=== PATIENT | female | born 1990 | race Caucasian/White ===

== ENCOUNTER 2017-05-12 22:42 | Emergency (ER) | payer MEDICARE, MEDICAID ==
[2017-05-12 22:51] VITALS: BP 112/76
[2017-05-12] MEDS ORDERED: Baclofen 10 MG Tab PO ONE (23:46)
--- NOTE | 2017-05-13 00:25 | EDM.PDOC ---
ED HPI GENERAL MEDICAL PROBLEM - General Chief Complaint: Neurological Problem Stated Complaint: NEEDS MEDS Time Seen by Provider: 05/12/17 23:36 Source of Information: Reports: Patient, Family History Limitations: Reports: No Limitations - History of Present Illness INITIAL COMMENTS - FREE TEXT/NARRATIVE: The patient presents for a medication refill. She has a history of MS and she is now wheel chair bound and she is on baclofen 20mg 4 times per day. She ran out yesterday. She has more spactisity in her arms and legs today. Onset: Gradual Duration: Day(s): Location: Reports: Other (arms and leg) Severity: Mild Improves with: Reports: None Worsens with: Reports: None Associated Symptoms: Reports: No Other Symptoms Leg Pain Score (Numeric/FACES): 6 - Related Data Allergies Allergy/AdvReac Type Severity Reaction Status Date / Time No Known Allergies Allergy Verified 10/06/16 00:55 Home Meds: Home Meds Baclofen [Lioresal] 20 mg PO QID #30 tablet 05/03/14 [Rx] Cyanocobalamin (Vitamin B-12) [Vitamin B-12] 100 mcg PO DAILY 06/14/15 [History] Gabapentin [Neurontin] 400 mg PO TID 06/14/15 [History] Hydrocodone/Acetaminophen [Hydrocodon-Acetaminophen 5-325] 1 each PO QID [History] Sertraline [Zoloft] 50 mg PO BID 06/14/15 [History] Amitriptyline [Elavil] 25 mg PO BEDTIME 08/11/15 [History] Baclofen 20 mg PO QID #120 tablet 05/13/17 [Rx] Past Medical History Other Genitourinary History: Patient has a superpubic catheter. 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 - Infectious Disease History Infectious Disease History: Reports: Other (See Below) Other Infectious Disease History: Has hx of MRSA, has been cleared - Past Surgical History HEENT Surgical History: Reports: Myringotomy w Tube(s), Tonsillectomy Female Surgical History: Reports: Section Social & Family History - Tobacco Use Smoking Status *Q: Current Every Day Smoker Years of Tobacco use: 13 Packs/Tins Daily: 0.5 Used Tobacco, but Quit: Yes Month Tobacco Last Used: 03/2014 Second Hand Smoke Exposure: No - Caffeine Use Caffeine Use: Reports: Coffee - Alcohol Use Days Per Week of Alcohol Use: 0 Number of Drinks Per Day: 1 Total Drinks Per Week: 0 - Recreational Drug Use Recreational Drug Use: No ED ROS GENERAL - Review of Systems Review Of Systems: See Below Constitutional: Reports: No Symptoms HEENT: Reports: No Symptoms Respiratory: Reports: No Symptoms Cardiovascular: Reports: No Symptoms Endocrine: Reports: No Symptoms GI/Abdominal: Reports: No Symptoms : Reports: No Symptoms Musculoskeletal: Reports: Muscle Stiffness Skin: Reports: No Symptoms ED EXAM, NEURO - Physical Exam Exam: See Below Exam Limited By: No Limitations General Appearance: Alert, No Apparent Distress Ears: Normal External Exam Nose: Normal Inspection Head Exam: Atraumatic, Normocephalic Neck: Normal Inspection Respiratory/Chest: No Respiratory Distress, Lungs Clear, Normal Breath Sounds Cardiovascular: Regular Rate, Rhythm, No Edema, No Murmur GI/Abdominal: Soft, Non-Tender, No Organomegaly, No Mass Neurological: Alert Course - Vital Signs Last Recorded V/S: Last Vital Signs Temp 97.1 F 05/12/17 22:51 Pulse 94 05/12/17 22:51 Resp 20 05/12/17 22:51 BP 112/76 05/12/17 22:51 Pulse Ox 100 05/12/17 22:51 - Orders/Labs/Meds Meds: Medications Discontinued Medications Generic Name Dose Route Start Last Admin Trade Name Alem PRJanette Reason Stop Dose Admin Baclofen 40 mg 05/12/17 23:46 05/13/17 00:15 Lioresal PO 05/12/17 23:47 40 mg ONETIME ONE Administration - Re-Assessments/Exams Free Text/Narrative Re-Assessment/Exam: 05/13/17 03:05 I ordered a dose for her here and a prescription for more. Departure - Departure Time of Disposition: 00:25 Disposition: Home, Self-Care 01 Condition: Good Clinical Impression: Medication refill - Discharge Information Prescriptions: Baclofen 20 mg PO QID #120 tablet Referrals: Lane Garcia MD [Primary Care Provider] - Forms: ED Department Discharge Additional Instructions: Take the baclofen as prescribed. Please return if you are worse.
== END 2017-05-13 00:30 | disposition home or self-care (01) ==
LOC: JD.ED 22:42
DX: Z76.0 Encounter for issue of repeat prescription (principal); F17.210 Nicotine dependence, cigarettes, uncomplicated; Z79.899 Other long term (current) drug therapy; Z98.890 Other specified postprocedural states
CPT/HCPCS: 99282; A9270

== ENCOUNTER 2018-01-16 11:41 | Emergency (ER) | payer MEDICARE, MEDICAID ==
--- NOTE | 2018-01-16 12:15 | EDM.PDOC ---
ED HPI GENERAL MEDICAL PROBLEM - General Chief Complaint: Lower Extremity Injury/Pain Stated Complaint: POSSIBLE BLOOD CLOT RT LEG Time Seen by Provider: 01/16/18 12:12 Source of Information: Reports: Patient History Limitations: Reports: No Limitations - History of Present Illness INITIAL COMMENTS - FREE TEXT/NARRATIVE: 27-year-old female presents to the ED with painful right lower extremity. Painfull area appreciated by COMPOUND[employer] who cares for her this morning. Identified a palpable painful swelling in her right lateral calf when she was rubbing her down with lotion. Patient states that 4 days ago she had marked erythema of the anterior aspect of her right dorsal foot. This cleared up within the hour and it 's unclear as to the cause. Patient is immobilized, either bedridden or in a wheelchair due to multiple sclerosis. Diagnosed with MS within a few days of delivery of her last child 4 years ago. Within 3 months she was in a wheelchair due to the severity and aggressiveness of the multiple sclerosis. She has a suprapubic catheter in place that recurrently gets infected. Patient has quite significant spasticity of the lower extremities. No history of DVT. O2 sats are 100% on room air at this time. 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: Other (see below) (1.) - Related Data Allergies Allergy/AdvReac Type Severity Reaction Status Date / Time No Known Allergies Allergy Verified 01/16/18 11:54 Home Meds: Home Meds Baclofen [Lioresal] 20 mg PO QID #30 tablet 05/03/14 [Rx] Cyanocobalamin (Vitamin B-12) [Vitamin B-12] 100 mcg PO DAILY 06/14/15 [History] Gabapentin [Neurontin] 400 mg PO TID 06/14/15 [History] Hydrocodone/Acetaminophen [Hydrocodon-Acetaminophen 5-325] 1 each PO QID 10/06/ 15 [History] Sertraline [Zoloft] 50 mg PO BID 06/14/15 [History] Amitriptyline [Elavil] 50 mg PO BEDTIME 08/11/15 [History] Past Medical History Other Genitourinary History: Patient has a superpubic catheter with recurrent chronic urinary tract infection. Advise to make sure that she has an x-ray of the area to make sure she does not have a bladder stone. Would ask for a nidus for recurrent infections. 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 - Infectious Disease History Infectious Disease History: Reports: Other (See Below) Other Infectious Disease History: Has hx of MRSA, has been cleared - Past Surgical History HEENT Surgical History: Reports: Myringotomy w Tube(s), Tonsillectomy Female Surgical History: Reports: Section Social & Family History - Caffeine Use Caffeine Use: Reports: Coffee - Living Situation & Occupation Living situation: Reports: Single Occupation: Disabled Review of Systems - Review of Systems Review Of Systems: See Below Constitutional: Reports: Weakness (Chronically due to MS) Eyes: Reports: No Symptoms Ears: Reports: No Symptoms Nose: Reports: No Symptoms Mouth/Throat: Reports: No Symptoms Respiratory: Reports: No Symptoms Cardiovascular: Reports: No Symptoms GI/Abdominal: Reports: Other (Constipation issues) Genitourinary: Reports: Other (Chronic indwelling [place] catheter) Musculoskeletal: Reports: Other (Currently is severely disabled from multiple sclerosis. She is either bedridden or in a wheelchair. She cannot walk. She has marked spasticity of her lower extremities.) Skin: Reports: No Symptoms Neurological: Reports: Other (Patient does not walk due to multiple sclerosis.) Psychiatric: Reports: Depression ED EXAM, GENERAL - Physical Exam Exam: See Below (Due to chronic disease.) Exam Limited By: Physical Impairment General Appearance: Alert (Has severe multiple sclerosis.), WD/WN, No Apparent Distress Eye Exam: Bilateral Eye: Normal Inspection Respiratory/Chest: No Respiratory Distress, Lungs Clear, Normal Breath Sounds Peripheral Pulses: 3+: Posterior Tibial (L), Posterior Tibial (R), Dorsalis Pedis (L), Dorsalis Pedis (R) GI/Abdominal: Normal Bowel Sounds, Soft, Non-Tender, No Organomegaly, Other ( Patient has a suprapubic catheter in place.) (Female) Exam: Other (Has a chronic suprapubic catheter in place with a leg bag taped to her right anterior thigh.) Extremities: Other (Examination was limited to her lower extremities. No abnormalities were identified in the left lower extremity. On the right side I can find no ache or cyst no effusion of the knee. On palpation of the calf identified a firmness to the mid belly of the lateral gastrocnemius muscle which correlated with her tenderness. Note there is no edema of the lower extremity. There is tenderness along the distal one third of the greater saphenous vein right leg. There is no overlying erythema or nodularity identified on exam.) Neurological: Alert, Oriented, CN II-XII Intact, Normal Cognition Psychiatric: Normal Affect Skin Exam: Warm, Dry, Intact, Normal Color, No Rash Course - Vital Signs Last Recorded V/S: Last Vital Signs Temp 36.3 C 01/16/18 11:49 Pulse 99 01/16/18 13:55 Resp 16 01/16/18 13:55 BP 102/71 01/16/18 13:55 Pulse Ox 100 01/16/18 13:55 - Orders/Labs/Meds Meds: Medications Discontinued Medications Generic Name Dose Route Start Last Admin Trade Name Freq PRN Reason Stop Dose Admin Hydrocodone Bitart/Acetaminophen 1 tab 01/16/18 13:15 01/16/18 13:22 [place] 325-5 Mg PO 01/16/18 13:16 1 tab ONETIME ONE Administration - Radiology Interpretation Free Text/Narrative:: 27-year-old female with multiple sclerosis presents to the ED with a painful swelling in her right lower calf. This was identified when she was run down with lotion today by her COMPOUNDER [employer] who provides care for her. Patient is severely disabled because of multiple sclerosis and is been unable to walk for several years. She is either in a wheelchair or in bed. There is a painful area appreciated mid right lateral gastrocnemius muscle on my examination. There is no edema of the lower extremity. Pulses are palpable. However she is tender along the greater saphenous vein in the distal one third of the right leg. No overlying erythema appreciated. Therefore a Doppler ultrasound will be performed on the right lower extremity. - Re-Assessments/Exams Free Text/Narrative Re-Assessment/Exam: 01/16/18 13:34 Doppler ultrasound of the right lower extremity is negative for any blood clots. Soreness is localized to the belly of the lateral gastrocnemius muscle .the radiologist reports that there are increased echoes within the subcutaneous tissues of the posterior calf of unclear etiology. SPECT this is due to chronic compression of this area due to sitting in wheelchair for prolonged periods of time. At this time I do not feel it warrants an MRI for further investigation. Consider this if the pain in the area persists. I suspect due to resting on the pad of your wheelchair. It would be worthwhile going by [employer] to see if there is a low pad that could be placed on the padding of the wheelchair to help prevent jury. At this time no change in medications are to be made. Departure - Departure Time of Disposition: 13:41 Disposition: Home, Self-Care 01 Condition: Fair Clinical Impression: Pain of right lower extremity - Discharge Information Referrals: Lane Garcia MD [Primary Care Provider] - Forms: ED Department Discharge Additional Instructions: Evaluation the emergency room today in regards to development of pain in the right lateral calf that was appreciated on examination this morning by your COMPOUNDER [employer]. Is also tenderness in the lower one third of the left medial ankle. An ultrasound was done to make sure there was no blood clot in the leg clinically there was not. However the ultrasound is completely negative without any blood clot. Pain appears to be musculoskeletal in origin. Palpation there is some swelling within the lateral gastrocnemius muscle which I suspect is resting on the wheelchair pad. At this time no change in medications to be made.
[2018-01-16] MEDS ORDERED: Acetaminophen/HYDROcodone 325-5 MG Tab PO ONE (13:15)
--- NOTE | 2018-01-16 13:36 | US ---
Right lower extremity deep venous ultrasound: Multiple real-time images of the right common femoral, proximal greater saphenous, superficial femoral, popliteal, posterior tibial and peroneal veins were obtained. Left common femoral vein was also evaluated. Findings: Diffuse increased echoes are seen within the subcutaneous tissue in area of reported lump within the posterior calf. Uncertain as to etiology of this finding. Normal phasic flow, augmentation is seen although the posterior tibial and peroneal veins were difficult to image for compression and phasic flow but show normal augmentation. Impression: 1. Increased echoes within the subcutaneous tissues of the posterior calf. Uncertain as to etiology. Please consider if patient's symptoms warrant further evaluation by MRI. 2. No findings of deep venous thrombosis is seen within the right lower extremity or within the left common femoral vein. Diagnostic code #3
[2018-01-16 14:02] VITALS: BP 102/71
== END 2018-01-16 13:55 | disposition home or self-care (01) ==
LOC: JD.ED 11:41
DX: M79.604 Pain in right leg (principal); Z79.899 Other long term (current) drug therapy
CPT/HCPCS: 93971; 99284; A9270; 99283

== ENCOUNTER 2019-06-14 00:26 | Emergency (ER) | payer MEDICARE, MEDICAID ==
[2019-06-14 00:34] VITALS: BP 125/103; PULSE 100
--- NOTE | 2019-06-14 00:40 | EDM.PDOC ---
ED HPI GENERAL MEDICAL PROBLEM - General Chief Complaint: Genitourinary Problem Stated Complaint: catheter is not draining bladder is full and in pa Time Seen by Provider: 06/14/19 00:36 Source of Information: Reports: Patient History Limitations: Reports: No Limitations - History of Present Illness INITIAL COMMENTS - FREE TEXT/NARRATIVE: 29 y/o F with ibarra catheter problem. She has hx MS, has suprapubic catheter. Noticed this evening that it wasn't draining. She was starting to have suprapubic discomfort. No additional complaint. No fever/recent illness. She gets regular catheter care by her home health nurse and has the catheter regularly changed. Bladder Pain Score (Numeric/FACES): 6 - Related Data Allergies Allergy/AdvReac Type Severity Reaction Status Date / Time No Known Allergies Allergy Verified 06/14/19 00:34 Home Meds: Home Meds Gabapentin [Neurontin] 400 mg PO TID 06/14/15 [History] Hydrocodone/Acetaminophen [Hydrocodon-Acetaminophen 5-325] 1 each PO QID [History] Sertraline [Zoloft] 50 mg PO BID 06/14/15 [History] Amitriptyline [Elavil] 25 mg PO BEDTIME 08/11/15 [History] Baclofen 40 mg PO ASDIRECTED 02/03/19 [History] Cholecalciferol (Vitamin D3) [Vitamin D3] 10,000 unit PO DAILY 02/03/19 [History ] Nystatin 1 applic TOP TID 02/03/19 [History] Past Medical History Other Genitourinary History: Patient has a superpubic catheter with recurrent chronic urinary tract infection. Advise to make sure that she has an x-ray of the area to make sure she does not have a bladder stone. Would ask for a nidus for recurrent infections. 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 - Infectious Disease History Infectious Disease History: Reports: Other (See Below) Other Infectious Disease History: Has hx of MRSA, has been cleared - Past Surgical History HEENT Surgical History: Reports: Myringotomy w Tube(s), Tonsillectomy Female Surgical History: Reports: Section Social & Family History - Tobacco Use Smoking Status *Q: Never Smoker - Caffeine Use Caffeine Use: Reports: Coffee - Living Situation & Occupation Living situation: Reports: Single Occupation: Disabled ED ROS GENERAL - Review of Systems Review Of Systems: See Below Constitutional: Denies: Fever Respiratory: Reports: No Symptoms Cardiovascular: Reports: No Symptoms GI/Abdominal: Reports: No Symptoms : Reports: Other (catheter not draining) Musculoskeletal: Reports: No Symptoms ED EXAM, RENAL/ - Physical Exam Exam: See Below Exam Limited By: No Limitations General Appearance: Alert, WD/WN, No Apparent Distress Eye Exam: Bilateral Eye: Normal Inspection Nose: Normal Inspection Throat/Mouth: Normal Inspection, Normal Voice, No Airway Compromise Head: Atraumatic, Normocephalic Neck: Normal Inspection, Supple Respiratory/Chest: No Respiratory Distress (Female) Exam: Other (Suprapubic catheter is in place, site clean, now draining) Course - Vital Signs Last Recorded V/S: Last Vital Signs Temp 36.9 C 06/14/19 00:31 Pulse 100 06/14/19 00:31 Resp 16 06/14/19 00:31 BP 125/103 H 06/14/19 00:31 Pulse Ox 100 06/14/19 00:31 - Re-Assessments/Exams Free Text/Narrative Re-Assessment/Exam: 06/14/19 01:00 Nursing was able to flush catheter and it is now draining clear urine. Patient feels much better. Departure - Departure Time of Disposition: 00:39 Disposition: Home, Self-Care 01 Clinical Impression: Problem with urinary catheter - Discharge Information Referrals: Lane Garcia MD [Primary Care Provider] - Forms: ED Department Discharge Additional Instructions: Return to the ED and/or follow up with your primary care provider for any new concerns.
== END 2019-06-14 00:45 | disposition home or self-care (01) ==
LOC: JD.ED 00:26
DX: T83.090A Other mechanical complication of cystostomy catheter, initial encounter (principal); Y73.2 Prosthetic and other implants, materials and accessory gastroenterology and urology devices associated with adverse incidents
CPT/HCPCS: 99283

== ENCOUNTER 2023-02-12 13:05 | Emergency (ER) | payer MEDICARE, MEDICAID ==
[2023-02-12 13:48] LABS: APPEARANCE,URINE CLEAR (Clear); BILIRUBIN,URINE NEGATIVE (Negative); COLOR,URINE YELLOW (Yellow); GLUCOSE,URINE NEGATIVE (Negative); KETONES,URINE NEGATIVE (Negative); LEUKOCYTE ESTERASE,URINE 2+ (Negative); NITRITE,URINE NEGATIVE (Negative); OCCULT BLOOD,URINE TRACE-LYSED (Negative); PROTEIN,URINE NEGATIVE (Negative)
[2023-02-12 14:12] LABS: BACTERIA,URINE MANY /hpf (FEW); MUCUS,URINE NOT SEEN /hpf (FEW); RBC,URINE 0-5 /hpf (0-5); YEAST,URINE MODERATE (NOT SEEN)
[2023-02-12] MEDS ORDERED: cefTRIAXone 1 GM, Lidocaine 1% 2.1 ML IM ONE ×2 (14:32)
[2023-02-12 16:37] VITALS: BP 110/80; PULSE 77
== END 2023-02-12 16:00 | disposition home or self-care (01) ==
LOC: JD.ED 13:05
DX: N39.0 Urinary tract infection, site not specified (principal); B96.5 Pseudomonas (aeruginosa) (mallei) (pseudomallei) as the cause of diseases classified elsewhere
CPT/HCPCS: 81001; 87086; 96372; 99283; J0696; J3490

== ENCOUNTER 2023-04-17 16:32 | Emergency (ER) | payer MEDICARE, MEDICAID ==
[2023-04-17 17:20] VITALS: BP 108/73; PULSE 102
[2023-04-17] MEDS ORDERED: Sodium Chloride 0.9% 10 ML Syringe FLUSH PRN (17:42)
[2023-04-17 18:19] LABS: BASOPHILS ABSOLUTE AUTO 0.01 K/mm3 (0.01-0.08); BASOPHILS PERCENT AUTO 0.2 % (0.1-1.2); EOSINOPHILS ABSOLUTE AUTO 0.06 K/mm3 (0.04-0.36); EOSINOPHILS PERCENT AUTO 1.3 (0.7-5.8); HEMATOCRIT 44.9 % (34.1-44.9); HEMOGLOBIN 15.1 gm/dl (11.2-15.7); IMMATURE GRAN ABSOLUTE AUTO 0.01 K/mm3 (0.00-0.10); IMMATURE GRAN PERCENT AUTO 0.2 % (<=1.0); LYMPHOCYTES ABSOLUTE AUTO 1.32 K/mm3 (1.18-3.74); LYMPHOCYTES PERCENT AUTO 27.6 % (19.3-51.7); MEAN CORPUSCULAR HEMOGLOBIN 33.1 pg (25.6-32.2); MEAN CORPUSCULAR HGB CONC 33.6 g/dl (32.2-35.5); MEAN CORPUSCULAR VOLUME 98.5 fl (79.4-94.8); MEAN PLATELET VOLUME 10.4 fl (9.4-12.3); MONOCYTES ABSOLUTE AUTO 0.51 K/mm3 (0.24-0.36); MONOCYTES PERCENT AUTO 10.7 % (4.7-12.5); NEUTROPHILS ABSOLUTE AUTO 2.87 K/mm3 (1.56-6.13); PLATELET COUNT,PLT 274 K/mm3 (182-369); RED BLOOD CELL COUNT 4.56 M/mm3 (3.98-5.22); WHITE BLOOD CELL COUNT,WBC 4.78 K/mm3 (3.98-10.04)
[2023-04-17 18:48] LABS: ALBUMIN 3.8 g/dl (3.4-5.0); ANION GAP 16.6 (5-15); BILIRUBIN TOTAL 0.5 mg/dL (0.2-1.0); BUN/CREATININE RATIO 18.3 (14-18); CALCIUM 8.7 mg/dL (8.5-10.1); CREATININE 0.6 mg/dL (0.55-1.02); EST CRCL DRUG DOSING (CG) 117.76 mL/min; PROTEIN TOTAL,TP 7.5 g/dl (6.4-8.2)
[2023-04-17 18:49] LABS: POTASSIUM,K 4.6 mEq/L (3.5-5.1)
[2023-04-17 18:53] LABS: LACTIC ACID 2.2 mmol/L (0.4-2.0)
[2023-04-17] MEDS ORDERED: Sodium Chloride 0.9% 1,000 ML IV ONE (18:56)
[2023-04-17 19:52] LABS: APPEARANCE,URINE CLEAR (Clear); BILIRUBIN,URINE NEGATIVE (Negative); COLOR,URINE YELLOW (Yellow); GLUCOSE,URINE NEGATIVE (Negative); KETONES,URINE NEGATIVE (Negative); LEUKOCYTE ESTERASE,URINE 2+ (Negative); NITRITE,URINE NEGATIVE (Negative); OCCULT BLOOD,URINE 2+ (Negative); PROTEIN,URINE NEGATIVE (Negative); UROBILINOGEN,URINE 0.2 (0.2-1.0)
[2023-04-17 20:05] LABS: BACTERIA,URINE FEW /hpf (FEW); MUCUS,URINE FEW /hpf (FEW); RBC,URINE 0-5 /hpf (0-5); SQUAMOUS EPITHELIAL CELLS,UR 0-5 /hpf (0-5)
[2023-04-17] MEDS ORDERED: cefTRIAXone 2 GM in Sodium Chloride 0.9% 100 ML IV ONE (20:13)
== END 2023-04-17 22:45 | disposition home or self-care (01) ==
LOC: JD.ED 16:32
DX: N30.01 Acute cystitis with hematuria (principal)
CPT/HCPCS: 36415; 80053; 81001; 83605; 83735; 85025; 87086; 87088; 87186; 96365; 99283; J0696; J3490; J7030